=== PATIENT | male | born 1980 | race Caucasian/White ===

== ENCOUNTER 2024-05-25 10:55 | Day surgery (SDC) | payer OTHER ==
[2024-05-22 10:28] VITALS: BMI 25.0
[2024-05-25] MEDS ORDERED: Bupivacaine/Epinephrine 0.25% 30 ML VIAL ONE (11:18)
[2024-05-25] MEDS ORDERED: CEFAZOLIN 2 GM VIAL ONE (11:22)
[2024-05-25] MEDS ORDERED: Ketorolac Tromethamine 30 MG (1 mL) VIAL ONE (11:27)
[2024-05-25] MEDS ORDERED: Acetaminophen 500 MG TAB ONE (11:27)
[2024-05-25] MEDS ORDERED: Scopolamine 1 mg/72 hour Patch ONE (11:30)
[2024-05-25 11:37] LABS: #Basophils 0.11 10x3/uL (0.0-0.2); #Eosinophils 0.28 10x3/uL (0.0-0.5); #Monocytes 0.86 10x3/uL (0.0-1.1); #Neutrophils 17.32 10x3/uL (1.5-8.4); %Basophils 0.5 % (0.0-2.0); %Eosinophils 1.4 % (0.0-6.0); %Lymphocytes 8.2 % (18.0-47.0); %Monocytes 4.2 % (0.0-10.0); %Neutrophils 85.2 % (40.0-75.0); Hematocrit 30.2 % (38.8-50.0); Mean Corpuscular HGB CONC 29.8 g/dL (32.0-36.0); Mean Corpuscular Hemoglobin 24.4 pg (27.0-33.0); Mean Corpuscular Volume 81.8 fL (81.2-95.1); Mean Platelet Volume 9.3 fL (7.4-10.4); Platelet Count 793 10x3/uL (150-450); RBC Distribution Width 17.7 % (11.5-14.5); Red Blood Cell (RBC) Count 3.69 10x6/uL (4.32-5.72); White Blood Cell (WBC) Count 20.35 10x3/uL (3.5-10.5)
[2024-05-25 11:54] LABS: Anion Gap 17 mmol/L (10-20); BUN (Urea Nitrogen) 12 mg/dL (8.9-20.6); Calc. Creatinine Clearance 135 mL/min (70-130); Calcium 9.2 mg/dL (7.8-10.44); Carbon Dioxide 22 mmol/L (22-29); Chloride 102 mmol/L (98-107); Estimated GFR 118; Glucose 88 mg/dL (70-105); Potassium 3.6 mmol/L (3.5-5.1); Sodium 137 mmol/L (136-145)
[2024-05-25] MEDS ORDERED: PROPOFOL 20 ML ONE (12:59)
[2024-05-25] MEDS ORDERED: Lidocaine 1% PF 5 ML VIAL ONE (12:59)
[2024-05-25] MEDS ORDERED: fentaNYL 50 mcg/mL 1 mL Vial ONE (13:19)
== END 2024-05-25 15:10 | disposition home or self-care (01) ==
LOC: CSHSDC 10:55
PROVIDERS: ATTEND Specialist
PROC: 0JH60WZ Insertion of Totally Implantable Vascular Access Device into Chest Subcutaneous Tissue and Fascia, Open Approach (ICD-10-PCS; principal; 2024-05-25)
DX: C18.2 Malignant neoplasm of ascending colon (principal); D63.8 Anemia in other chronic diseases classified elsewhere
CPT/HCPCS: 36415; 71045; 80048; 85025; C1788; J1642; J1885; J2704; J3010

== ENCOUNTER 2024-12-28 12:34 | Outpatient (CLI) | payer OTHER ==
[~2024-12-28 12:34] MED LIST: Iopamidol 300 61% 100 ML VIAL FS ONE
== END 2024-12-28 12:35 | disposition home or self-care (01) ==
LOC: CSHCT 12:34
PROVIDERS: ATTEND Internal Medicine
DX: C18.2 Malignant neoplasm of ascending colon (principal); D50.8 Other iron deficiency anemias; K63.9 Disease of intestine, unspecified; Z98.890 Other specified postprocedural states; Z93.1 Gastrostomy status
CPT/HCPCS: 71260; 74177